=== PATIENT | male | born 1960 | race Caucasian/White ===

== ENCOUNTER → 2022-02-05 11:56 | Outpatient (CLI) | payer OTHER, SELFPAY ==
--- NOTE | ~2022-02-05 | XR_ITS ---
XR knee LT min 4V DATE: 02/05/2022 12:13 INDICATION: Left knee pain TECHNIQUE: [place], lateral and standing AP and PA views COMPARISON: None FINDINGS: There is prominent enthesopathy of the patella superiorly at the quadriceps tendon insertio n site and particularly inferiorly at the patellar tendon insertion. There is moderate loss of medial compartment joint space height. There is mild to moderate periarticu lar spurring of the patella consistent with osteoarthritis. No fracture or dislocation, periosteal reaction or bone destruction, radiopaque intra-articular loose body or chondrocalcinosis. IMPRESSION: Osteoarthritis involving primarily the medial and patellofemoral compartments Prominent superior and inferior patellar enthesopathy Reviewed, dictated and finalized at location B. IMPRESSION: Osteoarthritis involving primarily the medial and patellofemoral co mpartments Prominent superior and inferior patellar enthesopathy
== END ==
PROVIDERS: PCP Family Medicine; Visit Provider Family Medicine
DX: M25.562 Pain in left knee (principal); M17.12 Unilateral primary osteoarthritis, left knee; M76.892 Other specified enthesopathies of left lower limb, excluding foot
CPT/HCPCS: 73564

== ENCOUNTER 2022-07-11 12:35 | Outpatient (CLI) | payer OTHER, SELFPAY ==
[2022-07-11 19:29] LABS: Hemoglobin A1C 6.2 % (<5.7)
== END 2022-07-11 12:36 | disposition home or self-care (01) ==
LOC: ANHGOSHLAB 12:38
PROVIDERS: PCP Family Medicine; Visit Provider Family Medicine
DX: E11.9 Type 2 diabetes mellitus without complications (principal)
CPT/HCPCS: 36415; 83036

== ENCOUNTER 2022-11-04 08:10 | Outpatient (CLI) | payer OTHER, SELFPAY ==
[2022-11-04 19:05] LABS: Alanine Aminotransferase 64 U/L (6-50); Albumin Level 4.4 g/dL (3.5-5.1); Alkaline Phosphatase 80 U/L (38-126); Anion Gap 11 mmol/L (8-16); Aspartate Amino Transferase 42 U/L (17-59); Bilirubin,Total 1.1 mg/dL (0.2-1.3); Blood Urea Nitrogen 17 mg/dL (9-20); Calcium 8.7 mg/dL (8.4-10.2); Carbon Dioxide 24 mmol/L (22-30); Chloride 101 mmol/L (98-107); Cholesterol 121 mg/dL (0-200); Estimated Glomerular Filt Rate > 60; Glucose 108 mg/dL (65-110); HDL Direct 31 mg/dL; Potassium 4.1 mmol/L (3.4-5.0); Sodium 136 mmol/L (137-145); Triglycerides 167 mg/dL (<150)
[2022-11-04 19:15] LABS: LDL Cholesterol Direct 61 mg/dL
[2022-11-04 19:34] LABS: Prostate Specific Antigen 0.4 ng/mL (< OR = 4.0)
[2022-11-04 20:00] LABS: Creatinine Urine 148.1 mg/dL
[2022-11-04 20:04] LABS: MALB Creatinine Ratio 5.3 mg/g (0-30); Microalbumin Urine Random 7.9 mg/L (0-16.7)
== END 2022-11-04 08:11 | disposition home or self-care (01) ==
LOC: ANHGOSHLAB 08:11
PROVIDERS: PCP Family Medicine; Visit Provider Family Medicine
DX: E78.5 Hyperlipidemia, unspecified (principal); Z12.5 Encounter for screening for malignant neoplasm of prostate; E11.9 Type 2 diabetes mellitus without complications; Z13.228 Encounter for screening for other metabolic disorders
CPT/HCPCS: 36415; 80053; 80061; 82043; 83036; 84153; G0103

== ENCOUNTER 2022-11-28 09:00 | Outpatient (NON) | payer OTHER, SELFPAY | END 2022-11-28 09:01 | disposition home or self-care (01) | PROVIDERS: PCP Family Medicine; Visit Provider Family Medicine | DX: L82.1 Other seborrheic keratosis (principal) | CPT/HCPCS: 88305 ==

== ENCOUNTER 2023-01-16 01:01 | Day surgery (SDC) | payer OTHER, SELFPAY ==
[2023-01-08 14:16] VITALS: BMI 37.4
[2023-01-16 07:37] VITALS: BP 118/76; PULSE 87; RESP 18; TEMP 36.2; O2SAT 98; BMI 35.9
--- NOTE | 2023-01-16 07:49 | WPDANESEPPF ---
Anes - Initial Pre Proc Eval Procedure: Operation Date: 01/16/23 08:30 Proposed Procedures p Colonoscopy - Javier Nolen MD Date/Time: 01/16/23 07:49 Surgeon: Javier Nolen MD Pre Op Diagnosis: hx of colon polyps Patient Data Age: 62 Gender: M Height: 1.75 m Weight: 110.4 kg Last Vital Signs Temp 36.2 C L 01/16/23 07:37 Pulse 87 01/16/23 07:37 Resp 18 01/16/23 07:37 BP 118/76 01/16/23 07:37 Pulse Ox 98 01/16/23 07:37 O2 Del Method Room Air 01/16/23 07:37 Allergies Allergy/AdvReac Type Severity Reaction Status Date / Time Penicillins Allergy Intermediate Hives Verified 01/16/23 07:46 Home Medications Medication Instructions Recorded Confirmed Type zaleplon 10 mg capsule 10 mg PO QHS PRN Insomnia 02/04/22 01/16/23 History fluticasone propionate 50 1 spray intranasal Q12H #16 mL 07/16/22 01/16/23 Rx mcg/actuation nasal spray,suspension (Flonase Allergy Relief) azelastine 137 mcg (0.1 %) nasal 137 mcg (0.137 mL) intranasal Q12H 08/05/22 01/16/23 Rx spray aerosol #30 mL atorvastatin 40 mg tablet 40 mg PO DAILY #90 tabs 08/21/22 01/16/23 Rx glimepiride 1 mg tablet 1 mg PO BID #180 tabs 08/21/22 01/16/23 Rx lisinopril 2.5 mg tablet 2.5 mg PO DAILY #90 tabs 08/21/22 01/16/23 Rx fexofenadine 180 mg tablet 180 mg PO DAILY #30 tabs 09/30/22 01/16/23 Rx (Laurie Allergy) metformin 1,000 mg tablet 1,000 mg PO BID #180 tabs 11/11/22 01/16/23 Rx semaglutide 0.25 mg or 0.5 mg (2 0.25 mg (0.4 mL) subcut WEEKLY #3 11/28/22 01/16/23 Rx mg/3 mL) subcutaneous pen injector mL Patient hx anesthesia problems: none Family hx anesthesia problems: none Results Review: All pre-operative results and documents have been reviewed as part of the pre-operative evaluation. [facility] Past Medical History Medical History (Updated 01/16/23 @ 07:50 by Matthew Magallanes MD) Obesity (BMI 30-39.9) MURTAZA (obstructive sleep apnea) Type 2 diabetes mellitus Family History Family History Mother Cancer Diabetes mellitus Father Diabetes mellitus Social History Social History Smoking status: Never smoker Alcohol intake: never Substance use: never Lack of Transportation: No Lack of Food: Never True Current Housing: I Have Housing Concerned About Future Housing: No Difficulty Paying Gas/Electric Bills: No Difficulty Paying for Meds: No Currently Unemployed: No Education: Associate Degree Difficulty w/ Childcare or Family Care: No Living arrangements: with family 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 Gender identity (if verbalized by the patient): Male Sexual Orientation (if Verbalized by the Patient): Straight or Heterosexual Spiritual care concerns: No Anes - Eval Final PreProcedure Day of Procedure 01/16/23 07:49 Patient weight: obese Heart: regular rate and rhythm Lungs: clear to auscultation and normal air movement Airway: Mallampati scale class II Neurological: alert and oriented Last oral intake: >/= 8 hours ASA classification: III Emergent: no Anesthetic plan: proceed Anesthesia type and monitoring: general GIVS Results Review: All pre-operative results and documents have been reviewed as part of the pre-operative evaluation. Informed Consent: The patient's anesthetic plan and its attendant risks and benefits were discussed with the patient/family/POA. Questions were solicited and answers provided to the satisfaction of the patient/family/POA.
[2023-01-16] MEDS: LACTATED RINGERS 1,000 ML 150 ML IV CONT (07:57)
--- NOTE | 2023-01-16 08:17 | PM.HPGS ---
History of Present Illness History of Present Illness Consent: Risks, benefits, and alternatives have been discussed and questions answered. Patient agrees to proceed with procedure. Chief complaint: hx of colon polyps Narrative: Chapin Shields is a 62 year old male Presents for screening colonoscopy. Patient has a prior history of colon polyps. At 1 time had post polypectomy bleeding. Most recent colonoscopy 3 years ago was unremarkable this was performed in [place]. Patient presents today for surveillance colonoscopy. Patient reports his current weight appetite and bowel movements are normal. Patient denies abdominal pain. He has had no bleeding recently. Review of Systems Review of Systems: Review of systems noncontributory. [facility] Past Medical History Medical History (Updated 01/16/23 @ 08:18 by Javier Nolen MD) Obesity (BMI 30-39.9) MURTAZA (obstructive sleep apnea) Type 2 diabetes mellitus Family History Family History Mother Cancer Diabetes mellitus Father Diabetes mellitus Social History Social History Smoking status: Never smoker Alcohol intake: never Substance use: never Lack of Transportation: No Lack of Food: Never True Current Housing: I Have Housing Concerned About Future Housing: No Difficulty Paying Gas/Electric Bills: No Difficulty Paying for Meds: No Currently Unemployed: No Education: Associate Degree Difficulty w/ Childcare or Family Care: No Living arrangements: with family 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 Gender identity (if verbalized by the patient): Male Sexual Orientation (if Verbalized by the Patient): Straight or Heterosexual Spiritual care concerns: No Meds Home Medications and Allergies Home Medications Medication Instructions Recorded Confirmed Type zaleplon 10 mg capsule 10 mg PO QHS PRN Insomnia 02/04/22 01/16/23 History fluticasone propionate 50 1 spray intranasal Q12H #16 mL 07/16/22 01/16/23 Rx mcg/actuation nasal spray,suspension (Flonase Allergy Relief) azelastine 137 mcg (0.1 %) nasal 137 mcg (0.137 mL) intranasal Q12H 08/05/22 01/16/23 Rx spray aerosol #30 mL atorvastatin 40 mg tablet 40 mg PO DAILY #90 tabs 08/21/22 01/16/23 Rx glimepiride 1 mg tablet 1 mg PO BID #180 tabs 08/21/22 01/16/23 Rx lisinopril 2.5 mg tablet 2.5 mg PO DAILY #90 tabs 08/21/22 01/16/23 Rx fexofenadine 180 mg tablet 180 mg PO DAILY #30 tabs 09/30/22 01/16/23 Rx (Laurie Allergy) metformin 1,000 mg tablet 1,000 mg PO BID #180 tabs 11/11/22 01/16/23 Rx semaglutide 0.25 mg or 0.5 mg (2 0.25 mg (0.4 mL) subcut WEEKLY #3 11/28/22 01/16/23 Rx mg/3 mL) subcutaneous pen injector mL Allergies Allergy/AdvReac Type Severity Reaction Status Date / Time Penicillins Allergy Intermediate Hives Verified 01/16/23 07:46 Vital Signs Vital Signs - 24 hr 01/16/23 07:37 Temperature 97.1 F L Pulse Rate 87 Respiratory Rate 18 Blood Pressure 118/76 Pulse Oximetry 98 Oxygen Delivery Room Air Exam Narrative: Physical exam reveals patient to be alert. Vital signs stable. HEENT exam is unremarkable. Patient is anicteric. Lungs are clear to auscultation and percussion. Heart is without murmur or extra sounds. Abdomen bowel sounds are present soft nontender with no organomegaly. Digital external rectal exam is normal. Assessment and Plan Assessment and plan (1) History of colon polyps: Code(s): Z86.010 - Personal history of colonic polyps Status: Acute Assessment and Plan: Patient has a prior history of colon polyps. Most recent exam 3 years ago was unremarkable. Plan for surveillance colonoscopy need now and at 3-5 year intervals in the future.
[2023-01-16 08:28] LABS: Glucose Point of Care 120 mg/dl (65-105)
[2023-01-16 08:47] VITALS: BP 149/84; PULSE 92; RESP 17; O2SAT 98
[2023-01-16 08:57] VITALS: BP 114/80; PULSE 94; RESP 21; O2SAT 99
[2023-01-16 09:07] VITALS: BP 109/76; PULSE 91; RESP 20; O2SAT 99
== END 2023-01-16 09:17 | disposition home or self-care (01) ==
PROVIDERS: PCP Family Medicine; Visit Provider Internal Medicine Gastroenterology
PROC: 0DJD8ZZ Inspection of Lower Intestinal Tract, Via Natural or Artificial Opening Endoscopic (ICD-10-PCS; CPT 45378; principal; 2023-01-16 08:30)
DX: Z12.11 Encounter for screening for malignant neoplasm of colon (principal); D12.2 Benign neoplasm of ascending colon; K64.8 Other hemorrhoids; E11.9 Type 2 diabetes mellitus without complications; G47.33 Obstructive sleep apnea (adult) (pediatric); Z79.84 Long term (current) use of oral hypoglycemic drugs; Z79.899 Other long term (current) drug therapy; E66.9 Obesity, unspecified; Z68.35 Body mass index [BMI] 35.0-35.9, adult
CPT/HCPCS: 45385; 82948; 88305; J2704; J7120

== ENCOUNTER 2023-06-02 10:29 | Outpatient (CLI) | payer OTHER, SELFPAY ==
[2023-06-02 14:15] LABS: Anion Gap 8 mmol/L (8-16); Blood Urea Nitrogen 16 mg/dL (9-20); Calcium 8.9 mg/dL (8.4-10.2); Carbon Dioxide 27 mmol/L (22-30); Chloride 102 mmol/L (98-107); Estimated Glomerular Filt Rate > 60; Glucose 108 mg/dL (65-110); Potassium 3.6 mmol/L (3.4-5.0); Sodium 137 mmol/L (137-145)
[2023-06-02 15:22] LABS: Hemoglobin A1C 5.8 % (<5.7)
== END 2023-06-02 10:30 | disposition home or self-care (01) ==
LOC: ANHGOSHLAB 10:31
PROVIDERS: PCP Family Medicine; Visit Provider Clinical Nurse Specialist
DX: E11.42 Type 2 diabetes mellitus with diabetic polyneuropathy (principal)
CPT/HCPCS: 36415; 80048; 83036

== ENCOUNTER 2023-11-03 07:55 | Outpatient (CLI) | payer OTHER, SELFPAY ==
[2023-11-03 14:58] LABS: Creatinine Urine 168.5 mg/dL
[2023-11-03 15:04] LABS: MALB Creatinine Ratio 10.8 mg/g (0-30); Microalbumin Urine Random 18.2 mg/L (0-16.7)
[2023-11-03 18:00] LABS: Alanine Aminotransferase 64 U/L (6-50); Albumin Level 4.3 g/dL (3.5-5.1); Alkaline Phosphatase 78 U/L (38-126); Anion Gap 8 mmol/L (4-12); Aspartate Amino Transferase 78 U/L (17-59); Bilirubin,Total 1.2 mg/dL (0.2-1.3); Blood Urea Nitrogen 14 mg/dL (9-20); Calcium 8.9 mg/dL (8.4-10.2); Carbon Dioxide 28 mmol/L (22-30); Chloride 102 mmol/L (98-107); Cholesterol 128 mg/dL (0-200); Estimated Glomerular Filt Rate > 60; Glucose 92 mg/dL (65-110); HDL Direct 34 mg/dL; Potassium 4.2 mmol/L (3.4-5.0); Sodium 138 mmol/L (137-145); Triglycerides 152 mg/dL (<150)
[2023-11-03 18:13] LABS: LDL Cholesterol Direct 72 mg/dL
[2023-11-03 18:32] LABS: Prostate Specific Antigen 0.5 ng/mL (< OR = 4.0)
[2023-11-03 21:06] LABS: Hemoglobin A1C 6.3 % (<5.7)
== END 2023-11-03 07:56 | disposition home or self-care (01) ==
LOC: ANHGOSHLAB 07:57
PROVIDERS: PCP Family Medicine; Visit Provider Family Medicine
DX: Z12.5 Encounter for screening for malignant neoplasm of prostate (principal); E11.9 Type 2 diabetes mellitus without complications; Z13.228 Encounter for screening for other metabolic disorders; Z13.220 Encounter for screening for lipoid disorders
CPT/HCPCS: 36415; 80053; 80061; 82043; 83036; 84153; G0103

== ENCOUNTER 2023-11-19 08:55 | Outpatient (CLI) | payer OTHER, SELFPAY ==
[2023-11-19 12:11] LABS: Basophils Percent Auto 0.4 % (0.2-1.2); Eosinophils Absolute Auto 0.1 K/mm3 (0-0.3); Hematocrit 44.5 % (42.0-52.0); Hemoglobin 15.2 g/dL (14.0-18.0); Immature Granulocyte Absolute 0.04 K/mm3 (0.00-0.031); Immature Granulocyte Percent A 0.6 % (0-0.5); Lymphocytes Percent Auto 24.5 % (18.3-44.2); Mean Corpuscular HGB Conc 34.2 g/dl (32-36); Mean Corpuscular Hemoglobin 32.2 pg (26-34); Mean Corpuscular Volume 94.3 fl (80-100); Mean Platelet Volume 9.4 fl (7.4-10.4); Monocytes Absolute Auto 0.6 K/mm3 (0.1-0.6); Monocytes Percent Auto 8.9 % (2.6-8.5); Neutrophils Absolute Auto 4.5 K/mm3 (1.3-6.7); Neutrophils Percent Auto 64.6 % (45.5-73.1); Platelet Count Result 202 k/mm3 (150-375); Red Blood Count 4.72 M/mm3 (4.6-6.20); Red Cell Distribution Width 13.2 % (11.5-14.5); White Blood Count 6.9 K/mm3 (4.5-10.0)
== END 2023-11-19 08:56 | disposition home or self-care (01) ==
PROVIDERS: PCP Family Medicine; Visit Provider Family Medicine
DX: R53.83 Other fatigue (principal)
CPT/HCPCS: 36415; 85025

== ENCOUNTER 2023-11-27 07:39 | Outpatient (CLI) | payer OTHER, SELFPAY ==
--- NOTE | ~2023-11-27 | US_ITS ---
EXAMINATION: US carotid duplex BI DATE: 11/27/2023 08:24 INDICATION: Dizziness and giddiness TECHNIQUE: Grayscale, color Doppler, and pulsed Doppler images of the cervical carotid arteries were obtained. The degree of vessel stenosis is placed in one of the following categories: normal, <50%, 5 0-69%, >=70% but less than near-occlusion, near-occlusion, or total occlusion. Note that percent sten osis relative to normal distal artery lumen diameter is indirectly measured from velocity measurement s as described by Shaun, et al. Radiology 2003; 229:340-346. Notes: Normal: Peak systolic velocity <125 centimeters/sec and no plaque <50%. Peak systolic velocity <125 ( EDV <40; ICA/CCA PSV ratio <2.0; used these factors only a tandem lesions or low cardiac output or co ntralateral disease) 50-69 %: PSV 125-230 (EDV 40-100; ratio 2-4) >= 70% but less than near occlusion: PSV greater than 230 (EDV > 100; ratio> 4.0) Near Occlusion: PSV that is variable; markedly narrowed lumen Occlusion: Absent flow on color/spectral Doppler and no lumen on vo scale. COMPARISON: None. FINDINGS: RIGHT: The right common carotid artery (CCA) peak systolic velocity (PSV) is 70 cm/s. The right internal car otid artery (ICA) PSV is 41 cm/s. The right ICA end-diastolic velocity (EDV) is 17 cm/s. The right IC A/CCA PSV ratio is 0.6. The external carotid artery (ECA) PSV is 64 cm/s. There is antegrade flow in the right vertebral artery. LEFT: The left CCA PSV is 62 cm/s. The left ICA PSV is 45 cm/s. The left ICA EDV is 20 cm/s. The left ICA/C CA PSV ratio is 0.9. The ECA PSV is 70 cm/s. There is antegrade flow in the left vertebral artery. IMPRESSION: 1. Less than 50% stenosis in the right internal carotid artery by sonographic criteria. 2. Less than 50% stenosis in the left internal carotid artery by sonographic criteria. Reviewed, dictated and finalized at location B. IMPRESSION: 1. Less than 50% stenosis in the right internal carotid artery by sonographic c ayde. 2. Less than 50% stenosis in the left internal carotid artery by sonographic cr pancho.
== END 2023-11-27 07:40 ==
PROVIDERS: PCP Family Medicine; Visit Provider Family Medicine
DX: I65.23 Occlusion and stenosis of bilateral carotid arteries (principal)
CPT/HCPCS: 93880

== ENCOUNTER 2024-01-11 08:04 | Outpatient (CLI) | payer OTHER, SELFPAY ==
[2024-01-11 12:53] LABS: Basophils Percent Auto 0.3 % (0.2-1.2); Eosinophils Absolute Auto 0.1 K/mm3 (0-0.3); Eosinophils Percent Auto 0.8 % (0-4.4); Hematocrit 45.9 % (42.0-52.0); Hemoglobin 15.5 g/dL (14.0-18.0); Immature Granulocyte Absolute 0.04 K/mm3 (0.00-0.031); Immature Granulocyte Percent A 0.5 % (0-0.5); Lymphocytes Absolute Auto 1.92 K/mm3 (0.9-3.2); Lymphocytes Percent Auto 24.9 % (18.3-44.2); Mean Corpuscular HGB Conc 33.8 g/dl (32-36); Mean Corpuscular Hemoglobin 31.9 pg (26-34); Mean Corpuscular Volume 94.4 fl (80-100); Mean Platelet Volume 9.3 fl (7.4-10.4); Monocytes Absolute Auto 0.6 K/mm3 (0.1-0.6); Monocytes Percent Auto 7.3 % (2.6-8.5); Neutrophils Absolute Auto 5.1 K/mm3 (1.3-6.7); Neutrophils Percent Auto 66.2 % (45.5-73.1); Platelet Count Result 185 k/mm3 (150-375); Red Blood Count 4.86 M/mm3 (4.6-6.20); Red Cell Distribution Width 12.8 % (11.5-14.5); White Blood Count 7.7 K/mm3 (4.5-10.0)
[2024-01-11 13:12] LABS: Alanine Aminotransferase 35 U/L (6-50); Albumin Level 4.3 g/dL (3.5-5.1); Alkaline Phosphatase 90 U/L (38-126); Anion Gap 8 mmol/L (4-12); Aspartate Amino Transferase 52 U/L (17-59); Bilirubin,Total 1.3 mg/dL (0.2-1.3); Blood Urea Nitrogen 15 mg/dL (9-20); Calcium 8.8 mg/dL (8.4-10.2); Carbon Dioxide 27 mmol/L (22-30); Chloride 103 mmol/L (98-107); Estimated Glomerular Filt Rate > 60; Glucose 193 mg/dL (65-110); Potassium 3.8 mmol/L (3.4-5.0); Sodium 138 mmol/L (137-145)
== END 2024-01-11 08:05 | disposition home or self-care (01) ==
PROVIDERS: PCP Family Medicine; Visit Provider Family Medicine
DX: R53.83 Other fatigue (principal); Z13.228 Encounter for screening for other metabolic disorders
CPT/HCPCS: 36415; 80053; 85025

== ENCOUNTER 2024-03-04 14:41 | Outpatient (CLI) | payer OTHER, SELFPAY ==
--- NOTE | ~2024-03-04 | MR_ITS ---
MRI of the left hindfoot Clinical history: Pain Technique: Coronal proton-density and proton-density fat-sat images, axial proton-density and proton- density fat-sat images, and sagittal proton-density and proton-density fat-sat images were acquired. Following intravenous administration of 20 cc MultiHance gadolinium, T1-weighted fat-sat imaging was performed in the axial, coronal, and sagittal planes. Findings: Syndesmotic ligaments are intact. Anterior and posterior talofibular ligaments, and calcane ofibular ligament are intact. Deltoid ligament is intact. Medial flexor tendons, peroneal tendons, anterior extensor tendons, and Achilles tendon are intact. T here is enthesopathic change and mild tendinosis at the Achilles tendon insertion region. There is probable focal chondromalacia at the lateral corner of the talar dome. There are mild degene rative changes of the tarsometatarsal joints. No significant joint effusion. There is mild low signal thickening of the origin of the plantar fascia with small plantar calcaneal spur. No soft tissue mass or fluid collection seen. No abnormal postcontrast enhancement identified. Impression: Chronic low signal mild thickening at the origin of the plantar fascial small plantar calcaneal spur. No abnormal postcontrast enhancement. 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 Reviewed, dictated and finalized at location . Impression: Chronic low signal mild thickening at the origin of the plantar fascial small p lantar calcaneal spur. No abnormal postcontrast enhancement. 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
== END 2024-03-04 14:42 ==
PROVIDERS: PCP Family Medicine; Visit Provider Podiatrist Foot & Ankle Surgery
DX: D21.22 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, including hip (principal); M77.32 Calcaneal spur, left foot; M94.272 Chondromalacia, left ankle and joints of left foot
CPT/HCPCS: 73720; A9577

== ENCOUNTER 2024-05-26 09:00 | Outpatient (CLI) | payer BC, SELFPAY ==
[2024-05-26 19:46] LABS: LDL Cholesterol Direct 111 mg/dL
[2024-05-26 20:04] LABS: Alanine Aminotransferase 53 U/L (6-50); Albumin Level 4.5 g/dL (3.5-5.1); Alkaline Phosphatase 94 U/L (38-126); Anion Gap 9 mmol/L (4-12); Aspartate Amino Transferase 64 U/L (17-59); Bilirubin,Total 1.3 mg/dL (0.2-1.3); Blood Urea Nitrogen 14 mg/dL (9-20); Calcium 9.3 mg/dL (8.4-10.2); Carbon Dioxide 29 mmol/L (22-30); Chloride 98 mmol/L (98-107); Cholesterol 214 mg/dL (0-200); Estimated Glomerular Filt Rate > 60; Glucose 106 mg/dL (65-110); HDL Direct 33 mg/dL; Potassium 4.4 mmol/L (3.4-5.0); Sodium 136 mmol/L (137-145); Triglycerides 328 mg/dL (<150)
[2024-05-26 20:56] LABS: Hemoglobin A1C 6.4 % (<5.7)
== END 2024-05-26 09:01 | disposition home or self-care (01) ==
LOC: ANHGOSHLAB 09:01
PROVIDERS: PCP Family Medicine; Visit Provider Family Medicine
DX: E11.9 Type 2 diabetes mellitus without complications (principal); Z13.220 Encounter for screening for lipoid disorders; Z13.228 Encounter for screening for other metabolic disorders
CPT/HCPCS: 36415; 80053; 80061; 83036

== ENCOUNTER 2024-07-04 08:03 | Emergency (ER) | payer BC, SELFPAY ==
[2024-07-04 08:16] VITALS: BP 114/81; PULSE 106; RESP 15; TEMP 36.3; O2SAT 100
--- NOTE | 2024-07-04 08:16 | ED.URI ---
HPI - URI/Sore Throat General Chief Complaint: Upper Respiratory Infection Stated Complaint: SORE THROAT/EARS/BODY ACHES/COLD SYMPTOMS Time Seen by Provider: 07/04/24 08:17 Source: patient Mode of arrival: ambulatory Limitations: no limitations History of Present Illness HPI Narrative: 63-year-old male presents with complaint nasal congestion, sinus pressure, pressure to bilateral ears, postnasal drainage with sore throat for the past 3-4 days. Afebrile. Patient reports abnormal for him to have pressure and pain to his ears. Takes a daily antihistamine. Not taking any other [id number] medications to treat his symptoms. No chest pain or shortness of breath. Patient states ?just not feeling well ?. All systems reviewed and negative except as noted above. Related Data Home Medications Medication Instructions Recorded Confirmed zaleplon 10 mg capsule 10 mg PO QHS PRN Insomnia 02/04/22 07/04/24 Allergies Allergy/AdvReac Type Severity Reaction Status Date / Time Penicillins Allergy Intermediate Hives Verified 07/04/24 08:21 Review of Systems Review of Systems: CONSTITUTIONAL: Denies fever, chills, or sweats. Reports fatigue. EYES: Denies visual changes, redness, or discharge. ENT: Reports rhinorrhea, congestion, postnasal drainage sore throat, and otalgia. CARDIOVASCULAR: Denies chest pain, palpitations, or edema. RESPIRATORY: Denies cough or dyspnea. GASTROINTESTINAL: Denies abdominal pain, nausea, vomiting, or diarrhea. GENITOURINARY: Denies dysuria or hematuria. SKIN: Denies rash or itching. MUSCULOSKELETAL: Denies back pain, joint pain, or myalgia. NEUROLOGIC: Denies headache, numbness, or weakness. PSYCHIATRIC: Denies anxiety or depression. All other systems reviewed are negative, except as documented in HPI. [facility] Past Medical History Medical History Obesity (BMI 30-39.9) MURTAZA (obstructive sleep apnea) Type 2 diabetes mellitus Family History Family History Mother Cancer Diabetes mellitus Father Diabetes mellitus Social History Social History Smoking status: Never smoker Alcohol intake: never Substance use: never Lack of Transportation: No Lack of Food: Never True Current Housing: I Have Housing Concerned About Future Housing: No Difficulty Paying Gas/Electric Bills: No Difficulty Paying for Meds: No Currently Unemployed: No Education: Associate Degree Difficulty w/ Childcare or Family Care: No Living arrangements: with family 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 There is no relevant family history pertinent to the presenting complaint. Exam Narrative: GENERAL: This is a well-nourished, well-developed patient, in no apparent distress. HEAD: normocephalic, atraumatic. EYES: PERRL. Sclera clear/white. Vision is grossly intact. EARS: External ears normal, auditory canals clear and without drainage, clear fluid bilateral TMs without erythema or perforation. Hearing grossly intact. NOSE: External nose normal with purulent nasal drainage with erythema and swelling to bilateral nares THROAT: Mucous membranes moist, erythema postnasal drainage NECK: Neck supple, non-tender without lymphadenopathy, masses or thyromegaly. CARDIOVASCULAR: Regular rate and rhythm without murmurs, gallops, or rubs. RESPIRATORY: Clear to auscultation. Breath sounds equal bilaterally. No wheezes, rales, or rhonchi. SKIN: warm, Dry, intact with no suspicious lesions or rash, good texture and turgor. NEURO: awake, alert, and oriented to person, place and time. There were no obvious focal neurologic abnormalities. EXTREMITIES: No joint tenderness, effusion, or edema noted. Course Course Level of Care: Express Care Visit Vital Signs Vital signs: Vital Signs Temperature 36.3 C L 07/04/24 08:16 Pulse Rate 106 H 07/04/24 08:16 Respiratory Rate 15 07/04/24 08:16 Blood Pressure 114/81 07/04/24 08:16 Pulse Oximetry 100 07/04/24 08:16 Oxygen Delivery Room Air 07/04/24 08:16 Temperature 36.3 C L 07/04/24 08:16 Pulse Rate 106 H 07/04/24 08:16 Respiratory Rate 15 07/04/24 08:16 Blood Pressure 114/81 07/04/24 08:16 Pulse Oximetry 100 07/04/24 08:16 Oxygen Delivery Room Air 07/04/24 08:16 Reviewed MDM - URI/Sore Throat MDM Narrative Medical decision making narrative: Will treat patient with antibiotic today due to being concerned for bacterial sinusitis. Patient has had symptoms for only 3-4 days. Educated patient on viral sinusitis. He really felt he needed antibiotic prior to Thanksgiving. Patient is aware of diagnosis, understands and agrees to treatment plan. Anticipatory guidance given. Patient agrees to follow-up as directed and is aware of reasons to seek care at the emergency department. Portions of this record may have been created with voice recognition software Differential Diagnosis Differential diagnosis: Likely sinusitis Discharge Plan Discharge Clinical Impression: Acute sinusitis Patient Disposition: Home, Self-Care Condition: Stable Instructions: Antibiotic Form, Sinusitis (ED) Additional Instructions: Continue a daily antihistamine such as Claritin or Zyrtec. Start a nasal spray such as Flonase or Nasocort. Drink at least 64 ounces of water a day. Drink hot tea with honey. If symptoms not improving in the next 5 days, start antibiotic. Prescriptions: New doxycycline hyclate 100 mg capsule 100 mg PO BID 7 Days Qty: 14 0RF No Action zaleplon 10 mg capsule 10 mg PO QHS PRN (Reason: Insomnia) Rx Instructions: must avoid high-fat meal/food immediately before taking dose metformin 1,000 mg tablet 1,000 mg PO BID Qty: 180 1RF glimepiride 1 mg tablet 1 mg PO BID Qty: 180 1RF atorvastatin 40 mg tablet 40 mg PO DAILY Qty: 90 1RF Follow-up/Referrals: Nemo Boyd, [employer] [employer] [Primary Care Provider] - Time of Disposition: 08:23
== END 2024-07-04 08:28 | disposition home or self-care (01) ==
PROVIDERS: Emergency Provider Nurse Practitioner Family; PCP Clinical Nurse Specialist
DX: J01.90 Acute sinusitis, unspecified (principal); E11.9 Type 2 diabetes mellitus without complications; E66.9 Obesity, unspecified; Z68.35 Body mass index [BMI] 35.0-35.9, adult
CPT/HCPCS: 99213; G0463

== ENCOUNTER 2025-01-08 17:04 | Emergency (ER) | payer OTHER, SELFPAY ==
[2025-01-08 17:14] VITALS: BP 132/85; PULSE 84; RESP 16; TEMP 35.9; O2SAT 100
== END 2025-01-08 17:26 | disposition home or self-care (01) ==
PROVIDERS: Emergency Provider Nurse Practitioner Family; PCP Clinical Nurse Specialist
DX: M25.531 Pain in right wrist (principal); E11.9 Type 2 diabetes mellitus without complications; Z79.84 Long term (current) use of oral hypoglycemic drugs
CPT/HCPCS: 99213; G0463

== ENCOUNTER 2025-03-24 07:39 | Outpatient (CLI) | payer OTHER, SELFPAY ==
--- OUTSIDE RECORDS SUMMARY | 2025-03-24 07:43 | XMS_ITS ---
[facility] Address [address] [place], [place] [id number] Care Team Providers Care Material Chaser Name Role Phone Jabari Alonso Primary Care Provider Unavailabl MUMTAZ Sanchez Unavailable [phone] Nemo Boyd Unavailable Unavailable REASON FOR VISIT *General care Encounters Encounter Location Date Provider Diagnosis [facility] [place] [address] [facility] [address] [place], [place] [id number] 01/30/2025 MUMTAZ DIAZ Plan Of Treatment Next Appt Details Provider Name:MUMTAZ DIAZ, 08:00:00 AM, [address], [facility] [address], [place], [place], [id number], Progress Notes * NORMA BRIZUELADOB: 2 (64 yo M)Acc No.[id number]:01/30/2025 Patient: Herson [place] Provider: China Diaz DPM :1960 A ge:64 Y S ex:Male Date:01/30/2025 Address:[address] [id number] Pcp:Jabari Alonso Subjective: * Chief Complaints: * 1 . *General care. * Medical History: Objective: * Vitals: Assessment: Plan: * Treatment: * Billing Information: * Visit Code: * Procedure Codes: * Electronic signature of MUMTAZ DIAZ DPM on 03/24/2025 at 07:43 AM CDT Sign off status: Pending * Provider: China Diaz DPM Date: 0 01/30/2025 Generated for Coco Moura/Huong on: 0 03/24/2025 07:43 AM CDT
--- OUTSIDE RECORDS SUMMARY | 2025-03-24 07:43 | XMS_ITS | Clinical Summary ---
Author Organization [facility] Address [address] [place] [address] Care Team Providers Care Improvement Coordinator Name Role Phone Jabari Alonso Primary Care Provider [phone] Allergies Active Allergy Reactions Criticality Noted Date Comments Lisinopril Cough 05/28/2023 Was taking lisinopril due to hx of diabetes and developed a cough Penicillins Hives 05/28/2023 Penicillins, Ampicillin cause hives Shellfish Allergy Nausea and Vomiting 9 Medications metFORMIN (GLUCOPHAGE) 1000 MG tablet Take 1 tablet (1,000 mg total) by mouth 2 (two) times daily with meals. Active glimepiride (AMARYL) 1 MG tablet Take 1 tablet (1 mg total) by mouth 2 (two) times a day. Active atorvastatin (LIPITOR) 40 MG tablet Take 1 tablet (40 mg total) by mouth every evening. Active acetaminophen (TYLENOL) 500 MG tablet Take 2 tablets (1,000 mg total) by mouth every 6 (six) hours as needed for Pain. Active NON FORMULARY Take 1 Dose by mouth daily. Takes several kinds of b vitamins daily. Active gabapentin (NEURONTIN) 300 MG capsule 3 Active Na sulfate-K sulfate-Mg sulfate (SUPREP BOWEL PREP) 17.5-3.13-1.6 GM/177ML Solution follow package directions 3 Active zolpidem CR (AMBIEN CR) 12.5 MG tablet 3 Active zaleplon (SONATA) 10 MG capsule Take 1 capsule (10 mg total) by mouth. Active Immunizations Immunization Administration Dates Next Due PFIZER COVID-19 BIVALENT (12 +) mRNA, LNP-S, PF, 30 MCG/0.3 ML DOSE 05/07/2022 Family History Medical History Relation Comments Diabetes Father Breast Cancer Mother Cancer Mother breast cancer Diabetes Mother Relation Status Comments Daughter 1 Alive Daughter 2 Alive Father (Age 68) Mother (Age 66) of breast cancer Social History Tobacco Use Types Packs/Day Years Used Date Smoking Tobacco: Never Smokeless Tobacco: Never Tobacco Cessation:Counseling Given: Not Answered Alcohol Use Standard Drinks/Week Comments Never 0 (1 standard drink = 0.6 oz pur e alcohol) Sex and Gender Information Value Date Recorded Sex Assigned at Not on file Legal Sex Male 8:29 AM CDT Gender Identity Not on file Sexual Orientation Not on file Last Filed Vital Signs Vital Sign Reading Time Taken Comments Blood Pressure 136/81 06/05/2023 10:30 AM CDT Pulse 84 06/05/2023 10:30 AM CDT Temperature 36.8 C (98.2 F) 06/05/2023 10:24 AM CDT Respiratory Rate 20 06/05/2023 10:3 0 AM CDT Oxygen Saturation 97% 06/05/2023 10: 30 AM CDT Inhaled Oxygen Concentration - - Weight 110.6 kg (243 lb 13.3 oz) 06/05/2023 6:54 AM CDT Height 175.3 cm (5' 9.02) 06/05/2023 6:54 AM CD T Body Mass Index 35.99 06/05/2023 6:54 AM CDT Plan of Treatment Health Maintenance Due Date Last Done Comments Colorectal Cancer Screening Colonoscopy (10 Years) 1960 Annual Physical 1964 Hepatitis C 12/17/1979 Zoster Vaccines (1 of 2) 12/17/2011 DTaP, Tdap and Td Vaccines (2 - Td or Tdap) 03/22/2022 03/22/2012 COVID-19 Vaccine ( season) 2024 04/27/2023, 05/07/2022, 10/04/2020, Additional history exists Pneumococcal Vaccine: 50+ Years Completed 12/17/2021, 08/10/2013, 04/04/2013, Additional history exists RSV Immunization or 60+ Years Completed 05/05/2023 Meningococcal B Vaccine Aged Out No l onger eligible based on patient's age to complete this topic Meningococcal Vaccine Aged Out No dariusz stella eligible based on patient's age to complete this topic RSV Immunizations Under 20 Months Aged Out No longer eligible based on patient's age to complete this topic Insurance [employer] Care Teams Improvement Coordinator Relationship Specialty Start Date End Date Jabari Alonso DO [facility] [facility] [place] [address] [place] [id number] PCP - General FAMILY PRACTICE 05/28/23
--- OUTSIDE RECORDS SUMMARY | 2025-03-24 07:43 | XMS_ITS | Patient Health Record ---
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 Role Phone Cirilocriss Jabari Primary Care Provider UnavailMUMTAZ Ku Unavailable [phone] Nemo Boyd Unavailable Unavailable Allergies Allergen (clinical drug ingredient) Drug/Non Drug Allergy documented on EMR Reaction Allergy Type Onset Date Status Shellfish (FN) Shellfish (uncoded) Unknown Allergy 01/13 active Iodine Unknown Drug Allergy 01/13/2022 active Substance with penicillin structure and antibacterial mechanism of action (substance) Penicillins Unknown Drug Allergy 01/13/2022 active Reason For Referral No Information Medications Medication SIG (Take, Route, Frequency, Duration) Notes Start Date End Date Status Pregabalin 50 MG 1 capsule in the vinod milton 1 to 3 hours before bedtime Orally Once a day; Duration: 30 days 12/14/2023 Active Gabapentin 300 MG 1 capsule Orally thr ee times a day; Duration: 90 days 02/15/2024 Active Gabapentin 300 MG 1 capsule Orally twi ce a day; Duration: 90 days 04/16/2023 Active Gabapentin 300 MG 1 capsule Orally thr ee times a day; Duration: 30 days 09/21/2023 Active methylPREDNISolone 4 MG as directed Orally one pack 024 Active Pregabalin 50 MG 1 capsule in the vinod [place]ton 1 to 3 hours before bedtime Orally Once a day; Duration: 30 days 11/30/2023 Active Gabapentin 100 MG 1 capsule Orally Onc e a day; Duration: 90 days 12/18/2022 Active Gabapentin 100 MG 1 capsule Orally thr ee times a day; Duration: 90 days 12/30/2022 Active Immunizations Vaccine Route Administration Date Status Comme nts Influenza, high dose seasonal Unknown 10/31/2024 Refuse d Influenza, unspecified formulation Unknown 04/14/2023 A dministered Pneumococcal conjugate PCV 13 Unknown 10/31/2024 Refuse d Vital Signs Height-cm 175.26 cm 02/27/2025 Weight-kg 113.4 kg 02/27/2025 Height 69.00 in 02/27/2025 Weight 250 lbs 02/27/2025 BMI 36.91 kg/m2 02/27/2025 Encounters Encounter Location Date Provider Diagnosis [facility] [address] [place] [id number] 02/27/2025 MUMTAZ SNOOK Tinea unguium B35.1 ; Pain in right toe(s) M79.674 ; Pain in left toe(s) M79.675 ; Atherosclerosis of cahto arteries of extremities with intermittent claudication, bilateral legs I70.213 ; Type 2 diabetes mellitus with other circulatory complications E11.59 and Type 2 diabetes mellitus with other diabetic neurological complication E11.49 [facility] [address] [place] [id number] 03/28/2024 MUMTAZ SNOOK Plantar fasciitis M7 2.2 ; 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, 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 ; Type 2 diabetes mellitus with other diabetic neurological complication E11.49 ; Left foot pain M79.672 and Encounter for other specified surgical aftercare Z48.89 [facility] [address] [place] [id number] 04/25/2024 MUMTAZ SNOOK Tinea unguium B35.1 ; Pain in right toe(s) M79.674 ; Pain in left toe(s) M79.675 ; Atherosclerosis of cahto arteries of extremities with intermittent claudication, bilateral legs I70.213 and Type 2 diabetes mellitus with other circulatory complications E11.59 [facility] [address] [place] [id number] 05/30/2024 MUMTAZ SNOOK Tinea unguium B35.1 ; Pain in right toe(s) M79.674 ; Pain in left toe(s) M79.675 ; Atherosclerosis of cahto arteries of extremities with intermittent claudication, bilateral legs I70.213 and Type 2 diabetes mellitus with other circulatory complications E11.59 [facility] [address] [place], [place] [id number] 09/05/2024 MUMTAZ DIAZ Tinea unguium B35.1 ; Pain in right toe(s) M79.674 ; Pain in left toe(s) M79.675 ; Atherosclerosis of cahto arteries of extremities with intermittent claudication, bilateral legs I70.213 and Type 2 diabetes mellitus with other circulatory complications E11.59 [facility] [address] [place] [id number] 10/31/2024 MUMTAZ EMILY Tinea unguium B35.1 ; Pain in right toe(s) M79.674 ; Pain in left toe(s) M79.675 ; Atherosclerosis of cahto arteries of extremities with intermittent claudication, bilateral legs I70.213 ; Type 2 diabetes mellitus with other circulatory complications E11.59 and Type 2 diabetes mellitus with other diabetic neurological complication E11.49 [facility] [address] [facility] [address] [place], [place] [id number] 01/28/2025 MUMTAZ DIAZ Assessments Encounter Date Diagnosis (ICD Code) Assessment Notes Treatment Notes Treatment Clinical Notes Section Notes 03/28/2024 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 Patient may window-picker the devices when ready 04/25/2024 Tinea unguium (ICD-10 - B35.1) NAIL DEBRIDEMENT: Nails 1-5 Bilateral were debrided extensively with nail nippers and emery board, reducing length and girth to pink healthy tissue with any subungual debris and necrotic tissue removed 05/30/2024 Tinea unguium (ICD-10 - B35.1) NAIL DEBRIDEMENT: Nails 1-5 Bilateral were debrided extensively with nail nippers and emery board, reducing length and girth to pink healthy tissue with any subungual debris and necrotic tissue removed 09/05/2024 Tinea unguium (ICD-10 - B35.1) NAIL DEBRIDEMENT: Nails 1-5 Bilateral were debrided extensively with nail nippers and emery board, reducing length and girth to pink healthy tissue with any subungual debris and necrotic tissue removed 10/31/2024 Tinea unguium (ICD-10 - B35.1) NAIL DEBRIDEMENT: Nails 1-5 Bilateral were debrided extensively with nail nippers and emery board, reducing length and girth to pink healthy tissue with any subungual debris and necrotic tissue removed 10/31/2024 Pain in right toe(s) (ICD-10 - M79.674) 02/27/2025 Tinea unguium (ICD-10 - B35.1) NAIL DEBRIDEMENT: Nails 1-5 Bilateral were debrided extensively with nail nippers and emery board, reducing length and girth to pink healthy tissue with any subungual debris and necrotic tissue removed 02/27/2025 Pain in right toe(s) (ICD-10 - M79.674) 02/27/2025 Pain in left toe(s) (ICD-10 - M79.675) 10/31/2024 Pain in left toe(s) (ICD-10 - M79.675) 05/30/2024 Pain in right toe(s) (ICD-10 - M79.674) 09/05/2024 Pain in right toe(s) (ICD-10 - M79.674) 04/25/2024 Pain in right toe(s) (ICD-10 - M79.674) 03/28/2024 Type 2 diabetes mellitus with other diabetic neurological complication (ICD-10 - E11.49) Order: EMG, NCV, Neuro consult 03/28/2024 Left foot pain (ICD-10 - M79.672) 04/25/2024 Pain in left toe(s) (ICD-10 - M79.675) 09/05/2024 Pain in left toe(s) (ICD-10 - M79.675) 05/30/2024 Pain in left toe(s) (ICD-10 - M79.675) 10/31/2024 Atherosclerosis of cahto arteries of extremities with intermittent claudication, bilateral legs (ICD-10 - I70.213) 02/27/2025 Atherosclerosis of cahto arteries of extremities with intermittent claudication, bilateral legs (ICD-10 - I70.213) 02/27/2025 Type 2 diabetes mellitus with other circulatory complications (ICD-10 - E11.59) Diabetic Foot Care: The patient was educated on diabetes and the lower extremity. The patient was instructed to check his feet daily to report any problems or signs of infection immediately. The patient was provided written information on Diabetic Foot Care as well as the Amputation Prevention Guide. 10/31/2024 Type 2 diabetes mellitus with other circulatory complications (ICD-10 - E11.59) Diabetic Foot Care: The patient was educated on diabetes and the lower extremity. The patient was instructed to check his feet daily to report any problems or signs of infection immediately. The patient was provided written information on Diabetic Foot Care as well as the Amputation Prevention Guide. 05/30/2024 Atherosclerosis of cahto arteries of extremities with intermittent claudication, bilateral legs (ICD-10 - I70.213) 09/05/2024 Atherosclerosis of cahto arteries of extremities with intermittent claudication, bilateral legs (ICD-10 - I70.213) 04/25/2024 Atherosclerosis of cahto arteries of extremities with intermittent claudication, bilateral legs (ICD-10 - I70.213) 03/28/2024 Encounter for other specified surgical aftercare (ICD-10 - Z48.89) 04/25/2024 Type 2 diabetes mellitus with other circulatory complications (ICD-10 - E11.59) Diabetic Foot Care: The patient was educated on diabetes and the lower extremity. The patient was instructed to check his feet daily to report any problems or signs of infection immediately. The patient was provided written information on Diabetic Foot Care as well as the Amputation Prevention Guide. 05/30/2024 Type 2 diabetes mellitus with other circulatory complications (ICD-10 - E11.59) Diabetic Foot Care: The patient was educated on diabetes and the lower extremity. The patient was instructed to check his feet daily to report any problems or signs of infection immediately. The patient was provided written information on Diabetic Foot Care as well as the Amputation Prevention Guide. 09/05/2024 Type 2 diabetes mellitus with other circulatory complications (ICD-10 - E11.59) Diabetic Foot Care: The patient was educated on diabetes and the lower extremity. The patient was instructed to check his feet daily to report any problems or signs of infection immediately. The patient was provided written information on Diabetic Foot Care as well as the Amputation Prevention Guide. 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 I will modify his left orthotics. For now, he will continue with his older devices Plan Of Treatment Next Appt Details Provider Name:MUMTAZ DIAZ, 08:00:00 AM, [address], [facility], [place], [place], [phone], Insurance Providers Payer Name Payer Address Payer Phone Subscriber Number Group Number Insured Name Patient Relationship to Insured Coverage Start Date Coverage End Date [facility] [address] [facility] [address] [place] [address] [id number] NORMA BRIZUELA Self - patient is the insured Medical (General) History Medical History History ICD Code Diabetic
--- OUTSIDE RECORDS SUMMARY | 2025-03-24 07:43 | XMS_ITS ---
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 The patient has painful toenails that are causing difficulty with ambulation and shoegear. The onset is gradual. The patient has diabetes mellitus Medications Medication SIG (Take, Route, Frequency, Duration) Notes Start Date End Date Status Pregabalin 50 MG 1 capsule in the vinod milton 1 to 3 hours before bedtime Orally Once a day; Duration: 30 days 12/14/2023 Active Gabapentin 300 MG 1 capsule Orally thr ee times a day; Duration: 90 days 02/15/2024 Active Pregabalin 50 MG 1 capsule in the vinod milton 1 to 3 hours before bedtime Orally Once a day; Duration: 30 days 11/30/2023 Active Gabapentin 100 MG 1 capsule Orally Onc e a day; Duration: 90 days 12/18/2022 Active Gabapentin 100 MG 1 capsule Orally thr ee times a day; Duration: 90 days 12/30/2022 Active Gabapentin 300 MG 1 capsule Orally twi ce a day; Duration: 90 days 04/16/2023 Active Gabapentin 300 MG 1 capsule Orally thr ee times a day; Duration: 30 days 09/21/2023 Active methylPREDNISolone 4 MG as directed Orally one pack 024 Active Vital Signs Height 69.00 in 02/27/2025 Weight 250 lbs 02/27/2025 BMI 36.91 kg/m2 02/27/2025 Height-cm 175.26 cm 02/27/2025 Weight-kg 113.4 kg 02/27/2025 Encounters Encounter Location Date Provider Diagnosis [facility] [address] [place], [place] [id number] 02/27/2025 MUMTAZ DIAZ Tinea unguium B35.1 ; Pain in right toe(s) M79.674 ; Pain in left toe(s) M79.675 ; Atherosclerosis of [place] arteries of extremities with intermittent claudication, bilateral legs I70.213 ; Type 2 diabetes mellitus with other circulatory complications E11.59 and Type 2 diabetes mellitus with other diabetic neurological complication E11.49 Assessments Encounter Date Diagnosis (ICD Code) Assessment Notes Treatment Notes Treatment Clinical Notes Section Notes 02/27/2025 Tinea unguium (ICD-10 - B35.1) NAIL DEBRIDEMENT: Nails 1-5 Bilateral were debrided extensively with nail nippers and emery board, reducing length and girth to pink healthy tissue with any subungual debris and necrotic tissue removed 02/27/2025 Pain in right toe(s) (ICD-10 - M79.674) 02/27/2025 Pain in left toe(s) (ICD-10 - M79.675) 02/27/2025 Atherosclerosis of [place] arteries of extremities with intermittent claudication, bilateral [...] as well as the Amputation Prevention Guide. 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 The patient was instructed to check his feet daily to report any problems or signs of infection immediately. The patient was provided written information on Diabetic Foot Care as well as the Amputation Prevention Guide. Next Appt Details Follow Up: 10 - 12 weeks, Re ason: At-Risk Foot care, sooner if problems develop. Provider Name:MUMTAZ DIAZ, 08:00:00 AM, [address], [address], [phone], Progress Notes * DOMENICSTEFAN NORMADOB: 2 (64 yo M)Acc No.[id number]:02/27/2025 Patient: [facility] Provider: China Diaz DPM :1960 A ge:64 Y S ex:Male Date:02/27/2025 [id number] Pcp:Jabari Alonso Subjective: * Chief Complaints: * 1 . Patient presents for at-risk foot care . The patient has painful toenails that are causing difficulty with ambulation and shoegear. The onset is gradual. The patient has diabetes mellitus. * HPI: H PI: Follow Up Visit P kishore presents for follow-up visit for diabetic foot exam. Patient states that the only concerns he is having is the constant numbness in both feet. , MA: [facility]. * ROS: G eneral / Constitutional: Patient denies c hills, fever, weakness, night sweats. M usculoskeletal: Patient denies c hildhood foot problems, weakness. P atient complains of a h pain. fibroma of plantar fascia. P eripheral Vascular: Patient denies u lceration of feet, cold extremities. ? S kin: Patient denies u lcerations, discoloration. ? N eurologic: Patient denies b alance difficulty, confusion, difficulty speaking, dizziness. P atient complains of n umbness, burning/ tingling. * Medical History: D zandra. * Family History: F ather: PRN - Father: :: CHF,,known absent , :: H/O: skin disorder,,known absent . M other: PRN - Mother: :: Cancer,,known absent . * Social History: M igrated Social History: M igrated Social History: Smoking Status : Never used tobacco , History of tobacco use :. * Medications: T aking Gabapentin 100 MG Capsule 1 capsule Orally Once a day , Taking Gabapentin 100 MG Capsule 1 capsule Orally three times a day , Taking Gabapentin 300 MG Capsule 1 capsule Orally twice a day , Taking Gabapentin 300 MG Capsule 1 capsule Orally three times a day , Taking methylPREDNISolone 4 MG Tablet Therapy Pack as directed Orally , Notes to Pharmacist: one pack, Taking Pregabalin 50 MG Capsule 1 capsule in the evening 1 to 3 hours before bedtime Orally Once a day , Taking Pregabalin 50 MG Capsule 1 capsule in the evening 1 to 3 hours before bedtime Orally Once a day , Taking Gabapentin 300 MG Capsule 1 capsule Orally three times a day , Medication List reviewed and reconciled with the patient * Allergies: S hellfish: Allergy - Onset Date 01/13/2022, Iodine: Allergy - Onset Date 01/13/2022, Penicillins: Allergy - Onset Date 01/13/2022. Objective: * Vitals: S hoe Size: 12, Wt:250lbs, Wt-k.4 kg, Ht: 69.00 in, Ht-cm: 175.26 cm, BMI:36.91Index, Body Surface Area: 2.35. * Examination: P hysical Examination: General appearance: A lert, pleasant, well-nourished and in no acute distress. D ermatologic: Skin findings: S kin is thin, atrophic and lacking pedal hair. Nail pathology: N ails 1, 2, 3, 4, and 5 bilateral are elongated, thick, discolored, and dystrophic with subungual debris. They are painful to palpation. ? V ascular: Dorsalis pedis pulse: 1 /4 b ilateral. Posterior tibial pulse: 0 /4 bilateral. Capillary refill: g reater than 3 seconds. Edema: N o edema bilateral. N eurologic: [place] 5.07 monofilament a bsent sensorium to digits via 5.07g monofilament. M usculoskeletal: Muscle Strength M uscle strength is 5/5 in regards to dorsiflexion, plantarflexion, inversion, and eversion in bilateral lower extremities. ? Assessment: * Assessment: 1. T inea unguium - B35.1 (Primary) 2 . P ain in right toe(s) - M79.674? 3. P ain in left toe(s) - M79.675 4 . A therosclerosis of skagway arteries of extremities with intermittent claudication, bilateral legs - I70.213 5 . T ype 2 diabetes mellitus with other circulatory complications - E11.59 6 .?Type 2 diabetes mellitus with other diabetic neurological complication - E11.49 ? Plan: * Treatment: 2. T ype 2 diabetes mellitus with other circulatory complications Notes: Diabetic Foot Care: The patient was educated on diabetes and the lower extremity. The patient was instructed to check his feet daily to report any problems or signs of infection immediately. The patient was provided written information on Diabetic Foot Care as well as the Amputation Prevention Guide. * Immunizations: Immunization record has been reviewed and updated. * Follow Up: 1 0 - 12 weeks (Reason: At-Risk Foot care, sooner if problems develop.) * Billing Information: * Visit Code: 61290 Office Visit, Est Pt., Level 3. * Procedure Codes: * Electronic signature of MUMTAZ DIAZ DPM on 03/24/2025 at 07:42 AM CDT Sign off status: Pending * Provider: China Diaz DPM Date: 0 02/27/2025 Generated for Coco marquez/Laz/Lynnitting on: 0 03/24/2025 07:42 AM CDT History and Physical Notes * HPI (History of Present Illness) Category Sub-Category Detail Notes Category Not es HPI Follow Up Visit Patient presents for follow-up visit for diabetic foot exam. Patient states that the only concerns he is having is the constant numbness in both feet. , MA: [facility] Examination Category Sub-Category Detail Notes Category Not es Dermatologic Skin findings: Skin is thin, at rophic and lacking pedal hair Nail pathology: Nails 1, 2, 3, 4, an d 5 bilateral are elongated, thick, discolored, and dystrophic with subungual debris. They are painful to palpation Neurologic [place] 5.07 monofilamen t absent sensorium to digits via 5.07g monofilament Vascular Dorsalis pedis pulse: 1/4 bilateral Edema: No edema bilateral Capillary refill: greater than 3 secon ds Posterior tibial pulse: 0/4 bilateral Physical Examination General appearance: Alert, pleasant, well-nourished and in no acute distress Musculoskeletal Muscle Strength Muscle strength is 5/5 in regards to dorsiflexion, plantarflexion, inversion, and eversion in bilateral lower extremities
--- OUTSIDE RECORDS SUMMARY | 2025-03-24 07:44 | XMS_ITS | Clinical Summary ---
Author Organization [facility] Health Address [address] [place] [address] Care Team Providers Care Travel Counselor Name Role Phone Unavailable Primary Care Provider Unavailabl e Allergies Active Allergy Reactions Criticality Noted Date Comments Amoxicillin 05/14/2021 Penicillins 12/15/2016 Shellfish Derived 08/17/2018 Medications atorvastatin (LIPITOR) 40 mg tablet Take by mouth. 0 Active glimepiride (AMARYL) 1 mg tablet Take by mouth. 0 Active lisinopriL (PRINIVIL,ZEST RIL) 2.5 mg tablet Take 1 tablet by mouth 1 (one) time each day. 1 Active metFORMIN (GLUCOPHAGE) 1,000 mg tablet Take 1,000 mg by mouth. 0 Active methylPREDNISo lone (MEDROL DOSPAK) 4 mg tablet See administration instructions. 0 Active zaleplon (SONATA) 10 mg capsule Take 10 mg by mouth. Active atorvastatin (LIPITOR) 40 mg tablet Take 40 mg by mouth. 1 Active glimepiride (AMARYL) 1 mg tablet Take 1 mg by mouth. 1 Active lisinopriL (PRINIVIL,ZEST RIL) 2.5 mg tablet Take 2.5 mg by mouth. 1 Active metFORMIN (GLUCOPHAGE) 1,000 mg tablet Take 1,000 mg by mouth. 1 Active traMADoL (ULTRAM) 50 mg tablet Take 50 mg by mouth every 6 (six) hours if needed. for pain 2 Active meloxicam (MOBIC) 15 mg tablet Take 15 mg by mouth 1 (one) time each day if needed. 2 Active lido (XYLOCAINE) 2 % solution Place into mouth between cheek and gum. 1 Active clindamycin (CLEOCIN) 300 mg capsule TAKE 2 CAPSULES BY MOUTH EVERY 8 HOURS FOR 5 DAYS 2 Active cephalexin (KEFLEX) 500 mg capsule TAKE 1 CAPSULE BY MOUTH EVERY 12 HOURS 2 Active NEBULIZER AND COMPRESSOR MISC Inhale 1 Device. 1 Active Active Problems Problem Noted Date Diagnosed Date Clinical diagnosis of COVID-19 04/12/2021 Actinic keratosis 12/22/2019 Acute conjunctivitis 12/22/2019 Acute sinusitis 12/22/2019 Acute upper respiratory infection 12/22/2019 Body mass index 35.0-35.9, adult 12/22/2019 Carotid sinus syndrome 12/22/2019 Decreased libido 12/22/2019 Dysfunction of eustachian tube 12/22/2019 Family history of other cardiovascular diseases 12/22/2019 Hypertrophic and atrophic condition of skin 12/08 Morbid obesity 12/22/2019 Need for prophylactic vaccin ation and inoculation against influenza 12/22/2019 Need for Streptococcus pneumoniae vaccination Neoplasm of uncertain behavior of skin 0 Nonspecific abnormal finding in stool contents 0 12/22/2019 Obstructive sleep apnea 12/22/2019 Other and unspecified noninf ectious gastroenteritis and colitis 12/22/2019 Other general symptoms 12/22/2019 Otitis media 12/22/2019 Trichiasis without entropion 12/22/2019 Urgency of urination 12/22/2019 Mixed hyperlipidemia 06/07/2019 Overview (05/16/2021): Last Assessment & Plan: Will refill medications at this time. Transaminitis 06/07/2019 Overview (05/16/2021): Last Assessment & Plan: Will recheck LFTs at this time. Colonoscopy causing post-procedural bleeding 10/2016 Diabetes mellitus without complication 7 Overview (05/16/2021): Last Assessment & Plan: Stable -- will have patient decrease glimepiride to 1 tab daily and continue metformin 1g BID. Patient to RTC in 6 months. Essential hypertension, benign 01/10/2017 Overview (05/16/2021): no hypertension per pt, takes for diabetes per physician Hemorrhage complicating a procedure 01/08/2017 Elevated LFTs 12/15/2016 Fecal occult blood test positive 12/15/2016 Acute gouty arthropathy 01/06/2015 Tinnitus 11/08/2014 Insomnia 08/10/2008 Immunizations Immunization Administration Dates Next Due COVID-19, mRNA, LNP-S, PF, 3 0 mcg/0.3 mL dose 10/04/2020,09/13/2020 Hep A, adult 04/18/2013 Influenza, split virus, trivalent, PF 05/06/2019 ,04/20/2018,06/06/2016 Pneumococcal conjugate PCV 13 08/10/2013 Pneumococcal polysaccharide PPV23 08/10/2013,,03/22/2012 Tdap 03/22/2012 Social History Tobacco Use Types Packs/Day Years Used Date Smoking Tobacco: Never Smokeless Tobacco: Never Tobacco Cessation:Counseling Given: Not Answered Alcohol Use Standard Drinks/Week Comments Not Currently 0 (1 standard drink = 0.6 oz pur e alcohol) Sex and Gender Information Value Date Recorded Sex Assigned at Not on file Legal Sex Male 8:42 PM PST Gender Identity Not on file Sexual Orientation Not on file Last Filed Vital Signs Vital Sign Reading Time Taken Comments Blood Pressure 119/76 11/19/2021 10:03 AM CDT Pulse 96 11/19/2021 10:03 AM CDT Temperature 36.2 C (97.2 F) 05/16/2021 10:15 AM CDT Respiratory Rate - - Oxygen Saturation - - Inhaled Oxygen Concentration - - Weight 118 kg (260 lb) 05/16/2021 10:15 AM CDT Height 175.3 cm (5' 9) 05/16/2021 10:15 AM CDT Body Mass Index 38.4 05/16/2021 10:15 AM CDT Plan of Treatment Health Maintenance Due Date Last Done Comments Dental CBCT 05/19/2020 05/19/2017, 06/29/2012 Dental X-Ray: Panoramic 06/10/2021 06/09/20 18, 05/19/2017, 12/19/2016, Additional history exists Dental X-Ray: Bitewings 11/15/2021 05/16/2021 Dental Oral Exam 05/22/2022 11/19/2021, 02/2021, 04/04/2020, Additional history exists Dental Prophylaxis 05/22/2022 11/19/2021, 1 , 04/04/2020, Additional history exists Dental X-Ray: Full Mouth 03/24/2023 03/23/2020, 10/2019, 06/29/2012 FIT-DNA Discontinued 07/22/2021 Procedures Procedure Name Priority Date/Time Associated Diagnosis Comments PROPHYLAXIS - ADULT Routine 11/19/2021 1 0:15 AM CDT PERIODIC ORAL EVALUATION - ESTABLISHED PATIENT Routine 11/19/2021 10:15 AM CDT INTRAORAL - COMPREHENSIVE SERIES OF RADIOGRAPHIC IMAGES Routine 09/12/2019 2:00 AM RATE CLERK PANORAMIC RADIOGRAPHIC IMAGE Routine 06/09/2018 2:00 [address] CDT [address] CAPTURE AND INTERPRETATION WITH FIELD OF VIEW OF BOTH JAWS; WITH OR WITHOUT CRANIUM Routine 05/19/2017 2:00 AM CDT from Last 3 Months or Most Recently Relevant to Health Maintenance Insurance [employer] PPO
--- OUTSIDE RECORDS SUMMARY | 2025-03-24 07:44 | XMS_ITS | Patient Health Record ---
Author Organization [facility] Address [address] [place] [address] Care Team Providers Care Financial Investment Adviser Name Role Phone Lloyd Martin MD Primary Care Provider Kalpesh Estrada Unavailable [phone] Allergies Allergen (clinical drug ingredient) Drug/Non Drug Allergy documented on EMR Reaction Allergy Type Onset Date Status ampicillin Ampicillin Unknown Drug Allergy Activ e Penicillin Unknown Drug Allergy Active Reason For Referral No Information Medications Medication SIG (Take, Route, Fr equency, Duration) Notes Start Date End Date Status traMADol HCl 50 MG 1 tablet as needed f or postoperative pain Orally every 6 hours; Duration: 7 11/13/2021 Activ e Meloxicam 15 MG 1 tablet Orally Once a day; Duration: 90 days Unknown Clindamycin HCl 300 MG 2 capsules Orally every 8 hrs; Duration: 5 day(s) Active Problems Problem Type SNOMED Code ICD Code Onset Dates Problem Status W/U Status Risk Notes Problem Localized, primary osteoarthritis of the wrist (868446796) Primary osteoarthritis, 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) Active confirmed Problem Localized, primary osteoarthritis of the wrist (658303522) Primary osteoarthritis, left wrist (M19.032) Active confirmed Problem Localized, primary osteoarthritis of the hand (893331088) Primary osteoarthritis of right hand (M19.041) Active confirmed Plan Of Treatment No Information Insurance Providers Payer Name Payer Address Payer Phone Subscriber Number Group Number Insured Name Patient Relationship to Insured Coverage Start Date Coverage End Date A[employer] [address] [place] [address] [id number] NORMA BRIZUELA Self - patient is the insured Medications Administered Medication Instructions Date of Administration Dosage Notes Betamethasone Sod Phos and A cetate 6MG/ML 10/10/2020 1 units Betamethasone Sod Phos and A cetate 6MG/ML 12/14/2020 3 mg Betamethasone Sod Phos and A cetate 6MG/ML 02/22/2021 3 mg Betamethasone Sod Phos and A cetate 6MG/ML 06/26/2021 3 mg Medical (General) History Medical History History ICD Code diabetes insipidus SLEEP APNEA Surgical History Surgery Date(Month/Year) colonoscopy 01/2020
--- OUTSIDE RECORDS SUMMARY | 2025-03-24 07:44 | XMS_ITS | Encounter Summary ---
Author Organization [facility] Health Address [address] [place] [address] Care Team Providers Care Wireless Retail Manager Name Role Phone Unavailable Primary Care Provider Unavailabl e Prior Encounters Date Type Department Care Team Description 11/19/2021 Travel 11/19/2021 10:15 AM CDT Office Visit [facility] [address], [address] [place] [address] Joann Parker DDS 05/16/2021 Travel 05/16/2021 10:15 AM CDT Office Visit [facility] [address], [address] [place] [address] Joann Parker DDS 11/27/2020 Travel 11/27/2020 10:15 AM CDT Office Visit [facility] [address] [place] [address] Joann Parker DDS 08/29/2019 Converted CPS Chart Documents [facility] [address], [address] [place] [phone] <No scans attached> 08/29/2019 Converted CPS Chart Documents [facility] [address], [address] [place] [address] <No scans attached> 08/29/2019 Converted CPS Chart Documents [facility] [address], [address] [place] [address] <No scans attached> 08/29/2019 Converted 13x Documents [facility] [address], [address] [place] [phone] <No scans attached> 08/29/2019 Converted 13x Documents [facility] [address] [place] [phone] <No scans attached> 08/29/2019 Converted 13x Documents [facility] [address], [address] [place] [address] <No scans attached> Last Filed Vital Signs Vital Sign Reading [...] 05/16/2021 10:15 AM CDT Plan of Treatment Not on file Procedures Procedure Name Priority Date/Time Associated Diagnosis Comments ORAL HYGIENE INSTRUCTIONS Routine 2021 10:15 AM CDT TOPICAL APPLICATION OF FLUORIDE VARNISH Routine 11/19/2021 10:15 AM CDT PROPHYLAXIS - ADULT Routine 11/19/2021 1 0:15 AM CDT PERIODIC ORAL EVALUATION - ESTABLISHED PATIENT Routine 11/19/2021 10:15 AM CDT ORAL HYGIENE INSTRUCTIONS Routine 2020 10:15 AM CDT PROPHYLAXIS - ADULT Routine 05/16/2021 1 0:15 AM CDT INTRAORAL PHOTO Routine 05/16/2021 10:15 AM CDT INTRAORAL PHOTO Routine 05/16/2021 10:15 AM CDT INTRAORAL PHOTO Routine 05/16/2021 10:15 AM CDT INTRAORAL PHOTO Routine 05/16/2021 10:15 AM CDT BITEWINGS - FOUR RADIOGRAPHIC IMAGES Routine 05/16/2021 10:15 AM CDT ADDITIONAL X-RAY Routine 05/16/2021 10:1 5 AM CDT ADDITIONAL X-RAY Routine 05/16/2021 10:1 5 AM CDT ADDITIONAL X-RAY Routine 05/16/2021 10:1 5 AM CDT ADDITIONAL X-RAY Routine 05/16/2021 10:1 5 AM CDT ADDITIONAL X-RAY Routine 05/16/2021 10:1 5 AM CDT SINGLE X-RAY Routine 05/16/2021 10:15 AM CDT PERIODIC ORAL EVALUATION - ESTABLISHED PATIENT Routine 05/16/2021 10:15 AM CDT INTRAORAL PHOTO Routine 11/27/2020 10:15 AM CDT LIMITED ORAL EVALUATION - PROBLEM FOCUSED Routine 11/27/2020 10:15 AM CDT CANCELLED APPOINTMENT Routine 09/06/2020 2:00 AM MOVEMENT THERAPIST ORAL HYGIENE INSTRUCTIONS Routine 2019 2:00 AM CDT PROPHYLAXIS - ADULT Routine 04/04/2020 2 :00 AM CDT PERIODIC ORAL EVALUATION - ESTABLISHED PATIENT Routine 04/04/2020 2:00 AM CDT CANCELLED APPOINTMENT Routine 02/16/2020 2:00 AM CDT BITEWINGS - FOUR RADIOGRAPHIC IMAGES Routine 09/13/2019 2:00 AM MOVEMENT THERAPIST ADDITIONAL X-RAY Routine 09/13/2019 2:00 AM MOVEMENT THERAPIST SINGLE X-RAY Routine 09/13/2019 2:00 AM MOVEMENT THERAPIST ORAL HYGIENE INSTRUCTIONS Routine 2019 2:00 AM MOVEMENT THERAPIST PROPHYLAXIS - ADULT Routine 09/12/2019 2 :00 AM MOVEMENT THERAPIST PERIODIC ORAL EVALUATION - ESTABLISHED PATIENT Routine 09/12/2019 2:00 AM MOVEMENT THERAPIST INTRAORAL - COMPREHENSIVE SERIES OF RADIOGRAPHIC IMAGES Routine 09/12/2019 2:00 AM MOVEMENT THERAPIST INTRAORAL PHOTO Routine 09/12/2019 2:00 AM MOVEMENT THERAPIST INTRAORAL PHOTO Routine 09/12/2019 2:00 AM MOVEMENT THERAPIST INTRAORAL PHOTO Routine 09/12/2019 2:00 AM MOVEMENT THERAPIST INTRAORAL PHOTO Routine 09/12/2019 2:00 AM MOVEMENT THERAPIST PROPHYLAXIS - ADULT Routine 03/10/2019 2 :00 AM CDT PERIODIC ORAL EVALUATION - ESTABLISHED PATIENT Routine 03/08/2019 2:00 AM CDT ORAL HYGIENE INSTRUCTIONS Routine 2018 2:00 AM MOVEMENT THERAPIST PROPHYLAXIS - ADULT Routine 09/07/2018 2 :00 AM MOVEMENT THERAPIST PERIODIC ORAL EVALUATION - ESTABLISHED PATIENT Routine 09/07/2018 2:00 AM MOVEMENT THERAPIST PANORAMIC RADIOGRAPHIC IMAGE Routine 06/09/2018 2:00 AM CDT BITEWINGS - FOUR RADIOGRAPHIC IMAGES Routine 06/09/2018 2:00 AM CDT ADDITIONAL X-RAY Routine 06/09/2018 2:00 AM CDT ADDITIONAL X-RAY Routine 06/09/2018 2:00 AM CDT INTRAORAL PHOTO Routine 06/09/2018 2:00 AM CDT INTRAORAL PHOTO Routine 06/09/2018 2:00 AM CDT INTRAORAL PHOTO Routine 06/09/2018 2:00 AM CDT INTRAORAL PHOTO Routine 06/09/2018 2:00 AM CDT 30 ENDODONTIC THERAPY, MOLAR TOOTH (EXCLUDING FINAL NONDENOMINATIONAL) Routine 02/15/2018 2:00 AM CDT 19 ENDODONTIC THERAPY, MOLAR TOOTH (EXCLUDING FINAL NONDENOMINATIONAL) Routine 02/15/2018 2:00 AM CDT 15 ENDODONTIC THERAPY, MOLAR TOOTH (EXCLUDING FINAL NONDENOMINATIONAL) Routine 02/15/2018 2:00 AM CDT 14 ENDODONTIC THERAPY, MOLAR TOOTH (EXCLUDING FINAL NONDENOMINATIONAL) Routine 02/15/2018 2:00 AM CDT 30 CROWN PFM POST Routine 02/15/2018 2:0 0 AM CDT 19 CROWN PFM POST Routine 02/15/2018 2:0 0 AM CDT 15 CROWN PFM POST Routine 02/15/2018 2:0 0 AM CDT 14 CROWN PFM POST Routine 02/15/2018 2:0 0 AM CDT ORAL HYGIENE INSTRUCTIONS Routine 2017 2:00 AM CDT PROPHYLAXIS - ADULT Routine 02/15/2018 2 :00 AM CDT COMPREHENSIVE ORAL EVALUATION - NEW OR ESTABLISHED PATIENT Routine 02/15/2018 2:00 AM CDT 18 O COMPOSITE FILLING Routine 8 2:00 AM CDT CANCELLED APPOINTMENT Routine 09/23/2017 2:00 AM MOVEMENT THERAPIST 18 LIMITED ORAL EVALUATION - PROBLEM FOCUSED Routine 09/08/2017 2:00 AM MOVEMENT THERAPIST CANCELLED APPOINTMENT Routine 09/02/2017 2:00 AM MOVEMENT THERAPIST SINGLE X-RAY Routine 06/12/2017 2:00 AM CDT INTRAORAL PHOTO Routine 06/12/2017 2:00 AM CDT INTRAORAL PHOTO Routine 06/12/2017 2:00 AM CDT INTRAORAL PHOTO Routine 06/12/2017 2:00 AM CDT INTRAORAL PHOTO Routine 06/12/2017 2:00 AM CDT 30 LIMITED ORAL EVALUATION - PROBLEM FOCUSED Routine 05/19/2017 2:00 AM CDT PANORAMIC RADIOGRAPHIC IMAGE Routine 05/19/2017 2:[address] CAPTURE AND INTERPRETATION WITH FIELD OF VIEW OF BOTH JAWS; WITH OR WITHOUT CRANIUM Routine 05/19/2017 2:00 AM CDT SINGLE X-RAY Routine 05/19/2017 2:00 AM CDT ORAL HYGIENE INSTRUCTIONS Routine 2016 2:00 AM CDT PROPHYLAXIS - ADULT Routine 03/19/2017 2 :00 AM CDT PERIODIC ORAL EVALUATION - ESTABLISHED PATIENT Routine 03/19/2017 2:00 AM CDT SINGLE X-RAY Routine 03/03/2017 2:00 AM CDT INTRAORAL PHOTO Routine 03/03/2017 2:00 AM CDT 6 ENAMELPLASTY Routine 02/26/2017 2:00 AM CDT 6 LIMITED ORAL EVALUATION - PROBLEM FOCUSED Routine 02/26/2017 2:00 AM CDT 30 ENDODONTIC THERAPY, MOLAR TOOTH (EXCLUDING FINAL NONDENOMINATIONAL) Routine 01/08/2017 2:00 AM CDT ADDITIONAL X-RAY Routine 01/06/2017 2:00 AM CDT SINGLE X-RAY Routine 01/06/2017 2:00 AM CDT OFFICE VISIT FOR OBSERVATION (DURING REGULARLY SCHEDULED HOURS) - NO OTHER SERVICES PERFORMED Routine 01/01/2017 2:00 AM CDT 30 TREATMENT OF ROOT CANAL OBSTRUCTION; NON-SURGICAL ACCESS Routine 12/25/2016 2:00 AM CDT LIMITED ORAL EVALUATION - PROBLEM FOCUSED Routine 12/25/2016 2:00 AM CDT 30 ENDODONTIC THERAPY, MOLAR TOOTH (EXCLUDING FINAL NONDENOMINATIONAL) Routine 12/25/2016 2:00 AM CDT 30 PULP VITALITY TESTS Routine 7 2:00 AM CDT 30 LIMITED ORAL EVALUATION - PROBLEM FOCUSED Routine 12/19/2016 2:00 AM CDT PANORAMIC RADIOGRAPHIC IMAGE Routine 12/19/2016 2:00 AM CDT ADDITIONAL X-RAY Routine 12/19/2016 2:00 AM CDT SINGLE X-RAY Routine 12/19/2016 2:00 AM CDT ORAL HYGIENE INSTRUCTIONS Routine 2015 2:00 AM MOVEMENT THERAPIST PROPHYLAXIS - ADULT Routine 08/07/2016 2 :00 AM MOVEMENT THERAPIST PERIODIC ORAL EVALUATION - ESTABLISHED PATIENT Routine 08/07/2016 2:00 AM MOVEMENT THERAPIST BITEWINGS - FOUR RADIOGRAPHIC IMAGES Routine 08/07/2016 2:00 AM MOVEMENT THERAPIST ORAL HYGIENE INSTRUCTIONS Routine 2015 2:00 AM CDT TOPICAL APPLICATION OF FLUORIDE VARNISH Routine 02/07/2016 2:00 AM CDT PROPHYLAXIS - ADULT Routine 02/07/2016 2 :00 AM CDT PERIODIC ORAL EVALUATION - ESTABLISHED PATIENT Routine 02/07/2016 2:00 AM CDT 15 PALLIATIVE TREATMENT OF DENTAL PAIN Routine 11/12/2015 2:00 AM CDT 15 OCCLUSAL ADJUSTMENT - LIMITED Routine 11/09/2015 2:00 AM CDT ADDITIONAL X-RAY Routine 11/09/2015 2:00 AM CDT SINGLE X-RAY Routine 11/09/2015 2:00 AM CDT INTRAORAL PHOTO Routine 11/09/2015 2:00 AM CDT 15 OCCLUSAL ADJUSTMENT - LIMITED Routine 09/07/2015 2:00 AM MOVEMENT THERAPIST 15 CEMENT CROWN Routine 08/20/2015 2:00 AM MOVEMENT THERAPIST SINGLE X-RAY Routine 08/20/2015 2:00 AM MOVEMENT THERAPIST 15 TREATMENT OF ROOT CANAL OBSTRUCTION; NON-SURGICAL ACCESS Routine 08/13/2015 2:00 AM MOVEMENT THERAPIST LIMITED ORAL EVALUATION - PROBLEM FOCUSED Routine 08/13/2015 2:00 AM MOVEMENT THERAPIST 15 ENDODONTIC THERAPY, MOLAR TOOTH (EXCLUDING FINAL NONDENOMINATIONAL) Routine 08/13/2015 2:00 AM MOVEMENT THERAPIST 15 PULP VITALITY TESTS Routine 6 2:00 AM MOVEMENT THERAPIST 15 PULPAL DEBRIDEMENT, PRIMARY AND PERMANENT TEETH Routine 08/09/2015 2:00 AM MOVEMENT THERAPIST 15 CERECFIRED CROWNPOST Routine 08/09/20 15 2:00 AM MOVEMENT THERAPIST ORAL HYGIENE INSTRUCTIONS Routine 2014 2:00 AM MOVEMENT THERAPIST PROPHYLAXIS - ADULT Routine 08/08/2015 2 :00 AM MOVEMENT THERAPIST PERIODIC ORAL EVALUATION - ESTABLISHED PATIENT Routine 08/08/2015 2:00 AM MOVEMENT THERAPIST BITEWINGS - FOUR RADIOGRAPHIC IMAGES Routine 08/08/2015 2:00 AM MOVEMENT THERAPIST BITEWINGS - FOUR RADIOGRAPHIC IMAGES Routine 08/08/2015 2:00 AM MOVEMENT THERAPIST ADDITIONAL X-RAY Routine 08/08/2015 2:00 AM MOVEMENT THERAPIST ADDITIONAL X-RAY Routine 08/08/2015 2:00 AM MOVEMENT THERAPIST ADDITIONAL X-RAY Routine 08/08/2015 2:00 AM MOVEMENT THERAPIST ADDITIONAL X-RAY Routine 08/08/2015 2:00 AM MOVEMENT THERAPIST ADDITIONAL X-RAY Routine 08/08/2015 2:00 AM MOVEMENT THERAPIST SINGLE X-RAY Routine 08/08/2015 2:00 AM MOVEMENT THERAPIST INTRAORAL PHOTO Routine 08/08/2015 2:00 AM MOVEMENT THERAPIST CANCELLED APPOINTMENT Routine 04/19/2015 2:00 AM CDT ORAL HYGIENE INSTRUCTIONS Routine 2014 2:00 AM MOVEMENT THERAPIST PROPHYLAXIS - ADULT Routine 10/13/2014 2 :00 AM MOVEMENT THERAPIST ORAL HYGIENE INSTRUCTIONS Routine 2013 2:00 AM CDT PROPHYLAXIS - ADULT Routine 04/12/2014 2 :00 AM CDT SINGLE X-RAY Routine 07/29/2013 2:00 AM MOVEMENT THERAPIST PERIODIC ORAL EVALUATION - ESTABLISHED PATIENT Routine 07/26/2013 2:00 AM MOVEMENT THERAPIST 30 CEMENT CROWN Routine 07/25/2013 2:00 AM MOVEMENT THERAPIST 30 CEREC CROWN POST Routine 07/25/2013 2 :00 AM MOVEMENT THERAPIST ORAL HYGIENE INSTRUCTIONS Routine 2012 2:00 AM MOVEMENT THERAPIST PROPHYLAXIS - ADULT Routine 07/21/2013 2 :00 AM MOVEMENT THERAPIST SINGLE X-RAY Routine 07/21/2013 2:00 AM MOVEMENT THERAPIST ORAL HYGIENE INSTRUCTIONS Routine 2012 2:00 AM CDT PROPHYLAXIS - ADULT Routine 01/13/2013 2 :00 AM CDT PERIODIC ORAL EVALUATION - ESTABLISHED PATIENT Routine 01/13/2013 2:00 AM CDT 30 B AMALGAM 1 SURFACE Routine 2 2:00 AM MOVEMENT THERAPIST 19 ENDODONTIC THERAPY, MOLAR TOOTH (EXCLUDING FINAL NONDENOMINATIONAL) Routine 06/29/2012 2:00 AM MOVEMENT THERAPIST 14 ENDODONTIC THERAPY, MOLAR TOOTH (EXCLUDING FINAL NONDENOMINATIONAL) Routine 06/29/2012 2:00 AM MOVEMENT THERAPIST 19 ENDODONTIC THERAPY, MOLAR TOOTH (EXCLUDING FINAL NONDENOMINATIONAL) Routine 06/29/2012 2:00 AM MOVEMENT THERAPIST 19 CROWN PFM POST Routine 06/29/2012 2:0 0 AM MOVEMENT THERAPIST 14 CROWN PFM POST Routine 06/29/2012 2:0 0 AM MOVEMENT THERAPIST PROPHYLAXIS - ADULT Routine 06/29/2012 2 :00 AM MOVEMENT THERAPIST COMPREHENSIVE ORAL EVALUATION - NEW OR ESTABLISHED PATIENT Routine 06/29/2012 2:00 AM MOVEMENT THERAPIST PANORAMIC RADIOGRAPHIC IMAGE Routine 06/29/2012 2:00 AM MOVEMENT THERAPIST [facility] CT CAPTURE AND INTERPRETATION WITH FIELD OF VIEW OF BOTH JAWS; WITH OR WITHOUT CRANIUM Routine 06/29/2012 2:00 AM MOVEMENT THERAPIST BITEWINGS - FOUR RADIOGRAPHIC IMAGES Routine 06/29/2012 2:00 AM MOVEMENT THERAPIST INTRAORAL - COMPREHENSIVE SERIES OF RADIOGRAPHIC IMAGES Routine 06/29/2012 2:00 AM MOVEMENT THERAPIST INTRAORAL PHOTO Routine 06/29/2012 2:00 AM MOVEMENT THERAPIST INTRAORAL PHOTO Routine 06/29/2012 2:00 AM MOVEMENT THERAPIST INTRAORAL PHOTO Routine 06/29/2012 2:00 AM MOVEMENT THERAPIST INTRAORAL PHOTO Routine 06/29/2012 2:00 AM MOVEMENT THERAPIST INTRAORAL PHOTO Routine 06/29/2012 2:00 AM MOVEMENT THERAPIST Visit Diagnoses Not on file Insurance [employer] PPO
--- OUTSIDE RECORDS SUMMARY | 2025-03-24 07:44 | XMS_ITS | Clinical Summary ---
Author Organization [facility] Address [address] [place] [address] Care Team Providers Care Endo Tech Name Role Phone Jabari Alonso DO Primary Care Provider [phone] Allergies Active Allergy Reactions Criticality Noted Date Comments Penicillins Rash Low 12/15/2016 Medications atorvastatin (LIPITOR) 40 mg tablet Take 40 mg by mouth. 07/26/2020 Active Wal-Fex Allergy 180 mg tablet Take 180 mg by mouth daily. 11/12/2022 Active gabapentin (NEURONTIN) 100 mg capsule 12/27/2022 Active glimepiride (AMARYL) 1 mg tablet Take 1 mg by mouth. 07/26/2020 Active metFORMIN (GLUCOPHAGE) 1,000 mg tablet Take 1,000 mg by mouth. 07/25/2020 Active zaleplon 10 mg capsule Take 10 mg by mouth. Active zolpidem (AMBIEN CR) 12.5 mg Controlled Release tablet 11/12/2022 Acti ve Active Problems No known active problems Family History Medical History Relation Name Comments Diabetes Father Cancer Mother Relation Name Status Comments Father Mother Social History Tobacco Use Types Packs/Day Years Used Date Smoking Tobacco: Never Sex and Gender Information Value Date Recorded Sex Assigned at Not on file Legal Sex Male 2:20 PM CDT Gender Identity Not on file Sexual Orientation Not on file Last Filed Vital Signs Vital Sign Reading Time Taken Comments Blood Pressure - - Pulse - - Temperature - - Respiratory Rate - - Oxygen Saturation - - Inhaled Oxygen Concentration - - Weight 115.7 kg (255 lb) 01/12/2023 9:23 AM CDT Height 175.3 cm (5' 9) 01/12/2023 9:23 AM CDT Body Mass Index 37.66 01/12/2023 9:23 AM CDT Plan of Treatment Health Maintenance Due Date Last Done Comments DIABETES ANNUAL RETINAL EXAM 12/17/1979 DIABETES MICROALBUMIN ANNUAL SCREEN 12/17/1979 LDL CHOLESTEROL ANNUAL 12/17/1979 COLORECTAL SCREENING 2006 Colorectal Cancer Screening 2006 FIT-DNA Q 3 years 2006 FIT/FOBT Q 1 year 2006 Flex Sig/CT Colonography Q 5 years 2006 ZOSTER VACCINE (1 of 2) 12/17/2011 DTAP/TDAP/TD VACCINES (2 - T d or Tdap) 03/22/2022 03/22/2012 DIABETES HBA1C Q 6 MONTHS 06/20/2022 12/18/2021 DIABETES ANNUAL FOOT EXAM 12/18/2022 12/18/2021 INFLUENZA VACCINE (#1) 2025 , 05/06/2019, 04/20/2018, Additional history exists RSV VACCINE (60+ or ) (1 - 1-dose 75+ series) 2036 Insurance [employer] CHOICE POS II Care Teams Endo Tech Relationship Specialty Start Date End Date Jabari Alonso DO [address] [address] PCP - General Family Practice 01/12/23
== END 2025-03-24 07:40 | disposition home or self-care (01) ==
LOC: ANHAUDIO 07:40
PROVIDERS: PCP Internal Medicine; Visit Provider Otolaryngology
DX: R42 Dizziness and giddiness (principal); H93.12 Tinnitus, left ear; H91.90 Unspecified hearing loss, unspecified ear
CPT/HCPCS: 92557